=== PATIENT | female | born 1975 | race Hispanic/Latino ===

== ENCOUNTER 2016-12-14 16:49 | Emergency (ER) | payer OTHER ==
[~2016-12-14] VITALS: Ht 152.4 cm; Wt 107.0 kg
[2016-12-14] MEDS ORDERED: MELOXICAM7.5 MG PO (17:21)
[2016-12-14] MEDS ORDERED: MOTRIN800 MG PO (17:48)
[2016-12-14] MEDS ORDERED: FLEXERIL PO (17:50)
[2016-12-14 19:40] VITALS: BP 163/89
== END 2016-12-14 19:40 | disposition home or self-care (01) | DRG 552 ==
LOC: ED 16:49
DX: S13.9XXA Sprain of joints and ligaments of unspecified parts of neck, initial encounter (principal); R51 Headache; V43.52XA Car driver injured in collision with other type car in traffic accident, initial encounter; Y92.414 Local residential or business street as the place of occurrence of the external cause

== ENCOUNTER 2016-12-30 04:56 | Inpatient (IN) | payer BC ==
[~2016-12-30] VITALS: Ht 152.4 cm; Wt 95.2 kg
[~2016-12-30 04:56] MED LIST: FLEXERIL PO; MELOXICAM7.5 MG PO; MOTRIN800 MG PO
[2016-12-30 05:32] LABS: HEMATOCRIT 40.8 % (37.0-47.0); HEMOGLOBIN 13.6 g/dl (12.0-16.0); IMMATURE GRANULOCYTES 0.4 % (0.0-1.0); MEAN CORPUSCULAR HGB CONC 33.3 g/L CALC (32.0-36.0); NEUT# 15.17 thou/uL (2.00-7.15); RED BLOOD COUNT 5.04 mill/uL (4.20-5.60); RED CELL DISTRI WIDTH 14.4 % (11.5-15.5)
[2016-12-30 05:35] LABS: URINE BILIRUBIN - DIPSTICK NEGATIVE (NEGATIVE); URINE BLOOD DIPSTICK LARGE (NEGATIVE); URINE CLARITY SLIGHT CLOUDY; URINE COLOR YELLOW; URINE GLUCOSE - DIPSTICK NEGATIVE (NEGATIVE); URINE KETONE NEGATIVE (NEGATIVE); URINE NITRITE - DIPSTICK NEGATIVE (Negative); URINE PROTEIN - DIPSTICK 100 mg/dL (NEG-TRACE); URINE SPECIFIC GRAVITY 1.015; URINE UROBILINOGEN - DIPSTICK 0.2 E.U./dL (0.2)
[2016-12-30 05:37] LABS: URINE LEUK ESTERASE MODERATE (NEGATIVE)
[2016-12-30 05:47] LABS: INFLUENZA A NONE DETECTED (NONE DETECT); INFLUENZA B NONE DETECTED (NONE DETECT)
[2016-12-30 05:50] LABS: ALBUMIN 4.1 g/dL (3.2-5.0); ALKALINE PHOSPHATASE 139 u/l (38-126); ANION GAP 15 (6-22 (CALC)); BILIRUBIN, TOTAL 0.8 mg/dL (0.0-1.4); BUN 12 mg/dL (7-17); BUN/CREATININE RATIO 21 (12-20 (CALC)); CALCIUM 8.9 mg/dL (8.4-10.2); CARBON DIOXIDE 25 mmol/l (22-30); CHLORIDE 101 mmol/l (95-108); CREATININE 0.5 mg/dL (0.5-1.0); GFR > 60 ML/MIN (>=60 (CALC)); GFR FOR AFR.AMER. > 60 ML/MIN (>=60 (CALC)); GLUCOSE 167 mg/dL (65-105); POTASSIUM 4.2 mmol/l (3.5-5.1); SGOT/AST 31 u/l (14-36); SGPT/ALT 40 u/l (9-52); SODIUM 138 mmol/l (137-146); TOTAL PROTEIN 7.7 g/dL (6.3-8.2)
[2016-12-30 05:51] LABS: URINE BACTERIA FEW hpf; URINE RBC 50-100 RBC/hpf (0-5); URINE SQUAMOUS EPITHELIAL CELL RARE EPI/hpf (0-FEW); URINE WBC 20-50 WBC/hpf (0-5)
[2016-12-30 08:57] VITALS: BP 124/77
[2016-12-30 11:41] VITALS: BP 129/71
[2016-12-30 14:01] VITALS: BP 149/85
[2016-12-30 16:30] VITALS: BP 120/78
[2016-12-30 19:39] VITALS: BP 124/81
[2016-12-30 20:37] VITALS: BP 108/68
[2016-12-31] VITALS (7 sets, daily range): BP systolic 105–163; BP diastolic 66–99
[2016-12-31 08:19] LABS: HEMATOCRIT 34.5 % (37.0-47.0); HEMOGLOBIN 11.1 g/dl (12.0-16.0); IMMATURE GRANULOCYTES 0.3 % (0.0-1.0); MEAN CELL VOLUME 83.1 fL CALC (80.0-100.0); MEAN CORPUSCULAR HGB 26.7 pG CALC (26.0-32.0); MEAN CORPUSCULAR HGB CONC 32.2 g/L CALC (32.0-36.0); NEUT# 10.68 thou/uL (2.00-7.15); RED BLOOD COUNT 4.15 mill/uL (4.20-5.60); RED CELL DISTRI WIDTH 14.5 % (11.5-15.5)
[2017-01-01 04:40] VITALS: BP 129/80
[2017-01-01 05:12] LABS: HEMATOCRIT 33.6 % (37.0-47.0); IMMATURE GRANULOCYTES 0.4 % (0.0-1.0); MEAN CELL VOLUME 82.8 fL CALC (80.0-100.0); MEAN CORPUSCULAR HGB 27.1 pG CALC (26.0-32.0); MEAN CORPUSCULAR HGB CONC 32.7 g/L CALC (32.0-36.0); NEUT# 6.6 thou/uL (2.00-7.15); RED BLOOD COUNT 4.06 mill/uL (4.20-5.60); RED CELL DISTRI WIDTH 14.2 % (11.5-15.5)
[2017-01-01 05:28] LABS: ANION GAP 12 (6-22 (CALC)); BUN 7 mg/dL (7-17); BUN/CREATININE RATIO 17 (12-20 (CALC)); CALCIUM 8.4 mg/dL (8.4-10.2); CARBON DIOXIDE 24 mmol/l (22-30); CHLORIDE 110 mmol/l (95-108); CREATININE 0.4 mg/dL (0.5-1.0); GFR > 60 ML/MIN (>=60 (CALC)); GFR FOR AFR.AMER. > 60 ML/MIN (>=60 (CALC)); GLUCOSE 111 mg/dL (65-105); POTASSIUM 3.3 mmol/l (3.5-5.1); SODIUM 143 mmol/l (137-146)
[2017-01-01 07:47] VITALS: BP 135/75
[2017-01-01 14:40] VITALS: BP 134/83
[2017-01-01] MEDS ORDERED: CIPROFLOXACN500 MG PO (16:34)
[2017-01-01] MEDS ORDERED: FLORASTOR250 M1 PO (16:34)
== END 2017-01-01 19:23 | disposition home or self-care (01) | DRG 690 ==
LOC: ENPENDDIS → ED 04:56 → ED-I 07:52 → ED 08:04 → MS2 08:05
PROVIDERS: Emergency Medicine; ADMIT Internal Medicine; ATTEND Internal Medicine
DX: N10 Acute pyelonephritis (principal); B96.20 Unspecified Escherichia coli [E. coli] as the cause of diseases classified elsewhere; E87.6 Hypokalemia; Z85.42 Personal history of malignant neoplasm of other parts of uterus; Z93.3 Colostomy status; Z92.3 Personal history of irradiation

== ENCOUNTER 2017-06-27 16:15 | Emergency (ER) | payer BC ==
[~2017-06-27] VITALS: Ht 152.4 cm; Wt 100.0 kg
[~2017-06-27 16:15] MED LIST changes: +CIPROFLOXACN500 MG PO; +FLORASTOR250 M1 PO
[2017-06-27] MEDS ORDERED: ZOFRAN4 MG/TAB PO (17:51)
[2017-06-27] MEDS ORDERED: NORCO1 TA1 PO (17:52)
[2017-06-27 18:21] LABS: HEMATOCRIT 42.5 % (37.0-47.0); HEMOGLOBIN 13.7 g/dl (12.0-16.0); IMMATURE GRANULOCYTES 0.4 % (0.0-1.0); MEAN CORPUSCULAR HGB 27.4 pG CALC (26.0-32.0); MEAN CORPUSCULAR HGB CONC 32.2 g/L CALC (32.0-36.0); NEUT# 8.12 thou/uL (2.00-7.15)
[2017-06-27 18:41] LABS: ALKALINE PHOSPHATASE 134 u/l (38-126); ANION GAP 16 (6-22 (CALC)); BILIRUBIN, TOTAL 0.3 mg/dL (0.0-1.4); BUN 17 mg/dL (7-17); BUN/CREATININE RATIO 27 (12-20 (CALC)); CALCIUM 9.5 mg/dL (8.4-10.2); CARBON DIOXIDE 27 mmol/l (22-30); CHLORIDE 103 mmol/l (95-108); CREATININE 0.6 mg/dL (0.5-1.0); GFR > 60 ML/MIN (>=60 (CALC)); GFR FOR AFR.AMER. > 60 ML/MIN (>=60 (CALC)); GLUCOSE 110 mg/dL (65-105); LIPASE 71 u/l (23-300); POTASSIUM 4.1 mmol/l (3.5-5.1); SGOT/AST 36 u/l (14-36); SGPT/ALT 48 u/l (9-52); SODIUM 142 mmol/l (137-146); TOTAL PROTEIN 7.3 g/dL (6.3-8.2)
[2017-06-27 19:10] LABS: URINE BILIRUBIN - DIPSTICK NEGATIVE (NEGATIVE); URINE BLOOD DIPSTICK LARGE (NEGATIVE); URINE CLARITY CLOUDY; URINE COLOR BROWN; URINE GLUCOSE - DIPSTICK NEGATIVE (NEGATIVE); URINE KETONE NEGATIVE (NEGATIVE); URINE LEUK ESTERASE SMALL (NEGATIVE); URINE NITRITE - DIPSTICK POSITIVE (Negative); URINE PH 6.5 (4.5-8.0); URINE PROTEIN - DIPSTICK 100 mg/dL (NEG-TRACE); URINE SPECIFIC GRAVITY 1.025; URINE UROBILINOGEN - DIPSTICK 0.2 E.U./dL (0.2)
[2017-06-27 19:16] LABS: URINE SQUAMOUS EPITHELIAL CELL FEW EPI/hpf (0-FEW)
[2017-06-27 19:17] LABS: URINE BACTERIA MANY hpf; URINE RBC 50-100 RBC/hpf (0-5)
[2017-06-27] MEDS ORDERED: CEPHALEXIN500 M1 PO (19:39)
[2017-06-27 20:01] VITALS: BP 145/72
== END 2017-06-27 20:05 | disposition home or self-care (01) | DRG 103 ==
LOC: ED 16:15
PROVIDERS: Family Medicine
DX: R51 Headache (principal); N39.0 Urinary tract infection, site not specified; B96.20 Unspecified Escherichia coli [E. coli] as the cause of diseases classified elsewhere; R11.0 Nausea; R42 Dizziness and giddiness